=== PATIENT | male | born 1995 | race Two or more races ===

== ENCOUNTER 2022-08-12 15:58 | Emergency (ER) | payer OTHER ==
[~2022-08-12] VITALS: Ht 167.6 cm; Wt 81.6 kg
[2022-08-12] MEDS ORDERED: MEDROLPACK PO (20:18)
== END 2022-08-12 20:30 | disposition home or self-care (01) ==
LOC: ER 15:58
DX: G51.0 Bell's palsy (principal)

== ENCOUNTER 2022-08-22 15:17 | Emergency (ER) | payer OTHER ==
[~2022-08-22] VITALS: Ht 167.6 cm; Wt 79.4 kg
[~2022-08-22 15:17] MED LIST: MEDROLPACK PO
== END 2022-08-22 19:45 | disposition left against medical advice (07) ==
LOC: ER 15:17
DX: B34.9 Viral infection, unspecified (principal); Z88.6 Allergy status to analgesic agent; Z91.013 Allergy to seafood; Z20.822 Contact with and (suspected) exposure to COVID-19